=== PATIENT | female | born 1985 | race Caucasian/White ===

== ENCOUNTER 2017-12-09 18:45 | Inpatient (IN) | payer OTHER ==
[~2017-12-09] VITALS: Ht 160 cm; Wt 82.1 kg
[~2017-12-09 18:45] MED LIST: BUPIVACAINE /PF 0.5% 30 ML VIAL EP ONE; LIDOCAINE PF 1% 30ML(POUR BTL) INJ ONE; MINERAL OIL 30 ML UDC PO ONE; ePHEDrine sulfate 50 MG/ML VIAL IVP ONE
[2017-12-09] MEDS ORDERED: OXYTOCIN/0.9 % SODIUM CHLORIDE 1,000 ML IV SCH (19:32)
[2017-12-09] MEDS ORDERED: LR 500 ML IV ONE ×2 (19:32→19:43)
[2017-12-09] MEDS ORDERED: LR 1,000 ML IV ONE (19:32)
[2017-12-09] MEDS: LR 1,000 ML IV SCH (19:32)
[2017-12-09] MEDS ORDERED: TERBUTALINE SULFATE 1 MG/ML VIAL SUBCUT PRN (19:45)
[2017-12-09] MEDS ORDERED: FENT2mCg/mL-ROPIVA0.2%/NS EPID 150 ML EP SCH (19:45)
[2017-12-09] MEDS ORDERED: ROPIVACAINE 0.2% 100 ML ONE (19:53)
[2017-12-09] MEDS ORDERED: fentaNYL CITRATE/PF 100 MCG/2 ML AMP ONE (19:53)
[2017-12-09 19:57] LABS: BASOPHILS % (AUTO) 0.3 % (0.0-2.0); EOSINOPHILS # (AUTO) 0.1 K/uL (0.0-0.4); EOSINOPHILS % (AUTO) 0.4 % (0.0-4.0); HEMATOCRIT 39.3 % (36-48); HEMOGLOBIN 13.5 g/dL (12.0-16.0); LYMPHOCYTES # (AUTO) 1.7 K/uL (1.0-5.5); LYMPHOCYTES % (AUTO) 13.5 % (20.5-51.5); MEAN CORPUSCULAR HEMOGLOBIN 32 pg (27-31); MEAN CORPUSCULAR HGB CONC 34 % (32-36); MEAN CORPUSCULAR VOLUME 93 fL (79.0-98.0); MONOCYTES # (AUTO) 0.9 K/uL (0.0-1.0); MONOCYTES % (AUTO) 6.6 % (1.7-9.3); NEUTROPHILS # (AUTO) 10.2 K/uL (1.8-7.7); NEUTROPHILS % (AUTO) 79.2 % (40.0-70.0); PLATELET COUNT (AUTO) 223 K/uL (130-430); RED BLOOD CELL COUNT(AUTO) 4.24 MIL/uL (4.2-6.2); WHITE BLOOD COUNT (AUTO) 12.9 K/uL (4.8-10.8)
[2017-12-09 22:07] VITALS: BP_SYST 132
[2017-12-10] MEDS ORDERED: fentaNYL CITRATE/PF 100 MCG/2 ML AMP ONE ×2 (00:17→09:25)
[2017-12-10] MEDS ORDERED: ROPIVACAINE 0.2% 100 ML ONE (03:35)
[2017-12-10 06:41] LABS: HEMATOCRIT 27.9 % (36-48); HEMOGLOBIN 9.3 g/dL (12.0-16.0)
[2017-12-10] MEDS ORDERED: MISOPROSTOL 100 MCG TABLET (CYTOTEC) ONE (08:54)
[2017-12-10 09:20] VITALS: BP_SYST 128
[2017-12-10] MEDS ORDERED: LR 1,000 ML IV.SOLN IV ONE (09:25)
[2017-12-10] MEDS ORDERED: PROPOFOL 200MG/ 20ML VIAL (DIPRIVAN) IV ONE (09:25)
[2017-12-10] MEDS ORDERED: MIDAZOLAM HCL 5 MG/ML VIAL (VERSED) IV ONE (09:25)
[2017-12-10] MEDS ORDERED: CEFAZOLIN 2 GM IVPB PREMIX 50 ML IV ONE (09:25)
[2017-12-10] MEDS ORDERED: NS 1000 ML IV.SOLN IV ONE (09:25)
[2017-12-10] MEDS ORDERED: OXYTOCIN/0.9 % SODIUM CHLORIDE 20 UNITS/1,000 ML BAG IV ONE (09:25)
[2017-12-10] MEDS ORDERED: METHYLERGONOVINE MALEATE 0.2 MG/ML AMP ONE (09:25)
[2017-12-10] MEDS: ceFAZolin SODIUM 2 GM in D5W 100 ML IV SCH ×2 (09:50→16:00)
[2017-12-10 12:10] LABS: BASOPHILS % (AUTO) 0.2 % (0.0-2.0); HEMATOCRIT 32.6 % (36-48); HEMOGLOBIN 10.9 g/dL (12.0-16.0); LYMPHOCYTES # (AUTO) 0.9 K/uL (1.0-5.5); LYMPHOCYTES % (AUTO) 6.5 % (20.5-51.5); MEAN CORPUSCULAR HEMOGLOBIN 31 pg (27-31); MEAN CORPUSCULAR HGB CONC 33 % (32-36); MEAN CORPUSCULAR VOLUME 94 fL (79.0-98.0); MONOCYTES # (AUTO) 0.4 K/uL (0.0-1.0); MONOCYTES % (AUTO) 2.7 % (1.7-9.3); NEUTROPHILS # (AUTO) 12.7 K/uL (1.8-7.7); NEUTROPHILS % (AUTO) 90.6 % (40.0-70.0); PLATELET COUNT (AUTO) 172 K/uL (130-430); RED BLOOD CELL COUNT(AUTO) 3.48 MIL/uL (4.2-6.2); RED CELL DISTRIBUTION WIDTH 12.9 % (9.0-15.0)
[2017-12-10 12:34] LABS: PROTHROMBIN TIME 9.9 SECS (9.5-12.5)
[2017-12-10] MEDS ORDERED: OXYCODONE/ACETAMINOPHEN 5-325 TABLET ONE (13:35)
[2017-12-10] MEDS: OXYCODONE/ACETAMINOPHEN 5-325 TABLET PO PRN ×2 (13:35→18:45)
[2017-12-10] MEDS ORDERED: OXYCODONE/ACETAMINOPHEN 5-325 TABLET PO PRN (14:15)
[2017-12-10] MEDS ORDERED: HYDROcodone/ACETAMIN 5-325 MG TAB (NORCO/ VICODIN) PO PRN (14:15)
[2017-12-10] MEDS ORDERED: OXYTOCIN/0.9 % SODIUM CHLORIDE 1,000 ML IV ONE (17:36)
[2017-12-10] MEDS ORDERED: OXYTOCIN/0.9 % SODIUM CHLORIDE 1,000 ML IV SCH (17:36)
[2017-12-10] MEDS ORDERED: MEASLES,MUMPS&RUBELLA VACC/PF 12500 UNIT/0.5 ML VIAL SUBQ PRN (17:45)
[2017-12-10] MEDS ORDERED: DIPH-TET-PERTUS Vaccine 0.5 ML VIAL (ADACEL) I.M. PRN (17:45)
[2017-12-10] MEDS ORDERED: WITCH HAZEL LEAF 1 MED.PAD MED.PAD TP PRN (17:45)
[2017-12-10] MEDS ORDERED: RHO(D) IMMUNE GLOBULIN/MALTOSE 1500 UNITS/1.3 ML (WINHRO) IM PRN (17:45)
[2017-12-10] MEDS ORDERED: LANOLIN 7 GM OINT. TP PRN (17:45)
[2017-12-10] MEDS ORDERED: METHYLERGONOVINE MALEATE 0.2 MG TABLET PO PRN (17:45)
[2017-12-10] MEDS ORDERED: DERMOPLAST SPRAY TP PRN (17:45)
[2017-12-10] MEDS ORDERED: ANUSOL 1 EA SUPP.RECT (PREPARATION H) RC PRN (17:45)
[2017-12-10] MEDS ORDERED: HYDROCORTISONE 0.5%, 28.35 GM TOPICAL CREAM TP PRN (17:45)
[2017-12-10] MEDS ORDERED: IBUPROFEN 600 MG TABLET ONE (17:51)
[2017-12-10] MEDS: IBUPROFEN 600 MG TABLET PO SCH (18:00)
[2017-12-10] MEDS: DOCUSATE SODIUM 100 MG CAPSULE PO PRN (18:00)
[2017-12-10] MEDS ORDERED: DOCUSATE SODIUM 100 MG CAPSULE PO ONE (18:39)
[2017-12-11] MEDS: OXYCODONE/ACETAMINOPHEN 5-325 TABLET PO PRN ×2 (04:37→10:48)
[2017-12-11] MEDS ORDERED: ceFAZolin SODIUM 1 GM VIAL ONE (05:47)
[2017-12-11] MEDS: IBUPROFEN 600 MG TABLET PO SCH ×2 (05:55→18:02)
[2017-12-11 06:10] LABS: BASOPHILS % (AUTO) 0.2 % (0.0-2.0); EOSINOPHILS # (AUTO) 0.1 K/uL (0.0-0.4); EOSINOPHILS % (AUTO) 1.2 % (0.0-4.0); HEMATOCRIT 26.4 % (36-48); HEMOGLOBIN 8.8 g/dL (12.0-16.0); LYMPHOCYTES # (AUTO) 1.5 K/uL (1.0-5.5); LYMPHOCYTES % (AUTO) 13.3 % (20.5-51.5); MEAN CORPUSCULAR HEMOGLOBIN 31 pg (27-31); MEAN CORPUSCULAR HGB CONC 33 % (32-36); MEAN CORPUSCULAR VOLUME 94 fL (79.0-98.0); MONOCYTES # (AUTO) 0.9 K/uL (0.0-1.0); MONOCYTES % (AUTO) 7.7 % (1.7-9.3); NEUTROPHILS % (AUTO) 77.6 % (40.0-70.0); PLATELET COUNT (AUTO) 152 K/uL (130-430); RED BLOOD CELL COUNT(AUTO) 2.82 MIL/uL (4.2-6.2); RED CELL DISTRIBUTION WIDTH 13.3 % (9.0-15.0); WHITE BLOOD COUNT (AUTO) 11.5 K/uL (4.8-10.8)
[2017-12-11] MEDS: ceFAZolin SODIUM 2 GM in D5W 100 ML IV SCH ×4 (09:00→17:00)
[2017-12-11] MEDS: LR 1,000 ML IV SCH (15:37)
[2017-12-11] MEDS: DOCUSATE SODIUM 100 MG CAPSULE PO PRN ×2 (15:38→20:39)
[2017-12-11] MEDS ORDERED: NS IV ONE (20:16)
[2017-12-11] MEDS ORDERED: METRONIDAZOLE IV ONE (20:16)
[2017-12-11] MEDS ORDERED: PIPERACILLIN/TAZOBACTAM 3.375 GM/VIAL (ZOSYN) IV ONE (20:16)
[2017-12-11] MEDS ORDERED: metroNIDAZOLE 500 MG TABLET ONE (20:30)
[2017-12-11] MEDS: metroNIDAZOLE 500 MG TABLET PO SCH (20:39)
[2017-12-11] MEDS: PIPERACILLIN/TAZO 3.375/DEX-IS 50 ML IV SCH (20:40)
[2017-12-12] MEDS ORDERED: TEMAZEPAM 15 MG CAPSULE PO PRN (00:30)
[2017-12-12] MEDS ORDERED: ACETAMINOPHEN 325 MG TABLET PO PRN (00:30)
[2017-12-12] MEDS ORDERED: NS IV ONE (01:44)
[2017-12-12] MEDS ORDERED: METRONIDAZOLE IV ONE (01:44)
[2017-12-12] MEDS: metroNIDAZOLE 500 MG TABLET PO SCH ×3 (01:56→22:05)
[2017-12-12] MEDS ORDERED: metroNIDAZOLE 500 MG TABLET ONE (01:56)
[2017-12-12] MEDS: PIPERACILLIN/TAZO 3.375/DEX-IS 50 ML IV SCH ×3 (01:57→22:00)
[2017-12-12] MEDS ORDERED: PIPERACILLIN/TAZOBACTAM 3.375 GM/VIAL (ZOSYN) IV ONE (01:59)
[2017-12-12] MEDS: LR 1,000 ML IV SCH (02:00)
[2017-12-12] MEDS: IBUPROFEN 600 MG TABLET PO SCH ×3 (06:11→18:13)
[2017-12-12] MEDS: DOCUSATE SODIUM 100 MG CAPSULE PO PRN (21:56)
[2017-12-13] MEDS: metroNIDAZOLE 500 MG TABLET PO SCH ×2 (03:56→10:25)
[2017-12-13] MEDS: PIPERACILLIN/TAZO 3.375/DEX-IS 50 ML IV SCH ×2 (03:58→10:23)
[2017-12-13] MEDS: IBUPROFEN 600 MG TABLET PO SCH ×2 (06:00)
[2017-12-13] MEDS: DOCUSATE SODIUM 100 MG CAPSULE PO PRN (09:09)
== END 2017-12-13 11:58 | disposition home or self-care (01) | DRG 806 ==
LOC: SPU 18:45 → OBSVTOIN 19:30 → SPU 12-10 19:30
PROVIDERS: ADMIT Specialist; ATTEND Specialist
PROC: 10E0XZZ Delivery of Products of Conception, External Approach (ICD-10-PCS; principal; 2017-12-09)
PROC: 3E0R3BZ Introduction of Anesthetic Agent into Spinal Canal, Percutaneous Approach (ICD-10-PCS; 2017-12-09)
PROC: 00HU33Z Insertion of Infusion Device into Spinal Canal, Percutaneous Approach (ICD-10-PCS; 2017-12-09)
PROC: 30233N1 Transfusion of Nonautologous Red Blood Cells into Peripheral Vein, Percutaneous Approach (ICD-10-PCS; 2017-12-10)
PROC: 0UQGXZZ Repair Vagina, External Approach (ICD-10-PCS; 2017-12-10)
PROC: 0UQMXZZ Repair Vulva, External Approach (ICD-10-PCS; 2017-12-10)
PROC: 0UJD7ZZ Inspection of Uterus and Cervix, Via Natural or Artificial Opening (ICD-10-PCS; 2017-12-10)
DX: O48.0 Post-term pregnancy (principal); O71.4 Obstetric high vaginal laceration alone; Z37.0 Single live birth; O72.1 Other immediate postpartum hemorrhage; O77.0 Labor and delivery complicated by meconium in amniotic fluid; O71.82 Other specified trauma to perineum and vulva; Z3A.41 41 weeks gestation of pregnancy
CPT/HCPCS: 36415; 81002-TC; 85018-TC; 85025; 85384-TC; 85610-TC; 85730-TC; 86592; 86886; 86900; 86901; 86920; 87040-TC; 90656; C1726; G0378; J0690; J2001; J2210; J2250; J2543; J2590; J2704; J2795; J3010; J3490; J7030; J7060; J7120; P9021

== ENCOUNTER 2020-04-02 18:05 | Outpatient (CLI) | payer OTHER, SELFPAY | END 2020-04-02 20:08 | disposition home or self-care (01) | LOC: SLB 18:05 | PROVIDERS: ATTEND Specialist | DX: Z20.822 Contact with and (suspected) exposure to COVID-19 (principal) | CPT/HCPCS: C9803; U0003 ==

== ENCOUNTER 2020-04-09 05:15 | Inpatient (IN) | payer OTHER, SELFPAY ==
[~2020-04-09] VITALS: Ht 157.5 cm; Wt 85.3 kg
[2020-04-09] MEDS ORDERED: OXYTOCIN/0.9 % SODIUM CHLORIDE 1,000 ML IV SCH (05:30)
[2020-04-09] MEDS ORDERED: TERBUTALINE SULFATE 1 MG/ML VIAL SUBCUT ONE (05:30)
[2020-04-09] MEDS ORDERED: LR 1,000 ML IV ONE (05:30)
[2020-04-09] MEDS ORDERED: NALBUPHINE HCL 10 MG/ML AMP IVP PRN (05:30)
[2020-04-09] MEDS: LR 1,000 ML IV SCH ×2 (06:20→21:35)
[2020-04-09 06:57] LABS: BASOPHILS % (AUTO) 0.5 % (0.0-2.0); EOSINOPHILS # (AUTO) 0.1 K/uL (0.0-0.4); EOSINOPHILS % (AUTO) 0.7 % (0.0-4.0); HEMATOCRIT 36.9 % (36-48); HEMOGLOBIN 12.7 g/dL (12.0-16.0); LYMPHOCYTES # (AUTO) 1.8 K/uL (1.0-5.5); LYMPHOCYTES % (AUTO) 22.3 % (20.5-51.5); MEAN CORPUSCULAR HEMOGLOBIN 32 pg (27-31); MEAN CORPUSCULAR HGB CONC 34 % (32-36); MEAN CORPUSCULAR VOLUME 93 fL (79.0-98.0); MONOCYTES # (AUTO) 0.5 K/uL (0.0-1.0); MONOCYTES % (AUTO) 6.4 % (1.7-9.3); NEUTROPHILS # (AUTO) 5.6 K/uL (1.8-7.7); NEUTROPHILS % (AUTO) 70.1 % (40.0-70.0); PLATELET COUNT (AUTO) 185 K/uL (130-430); RED BLOOD CELL COUNT(AUTO) 3.99 MIL/uL (4.2-6.2)
[2020-04-09 07:22] VITALS: BP_SYST 125
[2020-04-09] MEDS ORDERED: fentaNYL CITRATE/PF 100 MCG/2 ML AMP ONE ×2 (09:55→21:11)
[2020-04-09] MEDS ORDERED: ROPIVACAINE HCL/PF 0.2% 200 ML ONE ×2 (09:55→21:11)
[2020-04-09] MEDS ORDERED: FENT2mCg/mL-ROPIVA0.2%/NS EPID 200 ML EP SCH (14:15)
[2020-04-09] MEDS ORDERED: DIPHENHYDRAMINE INJ 50 MG/ML VIAL IVP PRN (14:15)
[2020-04-09] MEDS ORDERED: ONDANSETRON HCL 4 MG/2 ML VIAL IVP PRN (14:15)
[2020-04-09] MEDS ORDERED: NALOXONE HCL 0.4 MG/ML AMP (NARCAN) IVP PRN (14:15)
[2020-04-09] MEDS ORDERED: TEMAZEPAM 15 MG CAPSULE PO PRN (21:00)
[2020-04-09] MEDS: DIPHENHYDRAMINE INJ 50 MG/ML VIAL IVP PRN (21:34)
[2020-04-10] MEDS: DIPHENHYDRAMINE INJ 50 MG/ML VIAL IVP PRN (06:05)
[2020-04-10] MEDS: LR 1,000 ML IV SCH (07:33)
[2020-04-10] MEDS ORDERED: MEASLES,MUMPS&RUBELLA VACC/PF 12500 UNIT/0.5 ML VIAL SUBQ PRN (10:15)
[2020-04-10] MEDS ORDERED: DIPH-TET-PERTUS Vaccine 0.5 ML VIAL (ADACEL) I.M. PRN (10:15)
[2020-04-10] MEDS ORDERED: NALOXONE HCL 0.4 MG/ML AMP (NARCAN) IVP PRN (10:15)
[2020-04-10] MEDS ORDERED: OXYTOCIN/0.9 % SODIUM CHLORIDE 1,000 ML IV ONE (10:15)
[2020-04-10] MEDS ORDERED: ANUSOL 1 EA SUPP.RECT (PREPARATION H) RC PRN (10:15)
[2020-04-10] MEDS ORDERED: HYDROCORTISONE 0.5% CREAM 28.4 GM CREAM.GM. TP PRN (10:15)
[2020-04-10] MEDS ORDERED: RHO(D) IMMUNE GLOBULIN/MALTOSE 1500 UNITS/1.3 ML (WINHRO) IM PRN (10:15)
[2020-04-10] MEDS ORDERED: OXYTOCIN/0.9 % SODIUM CHLORIDE 1,000 ML IV SCH (10:15)
[2020-04-10] MEDS ORDERED: METHYLERGONOVINE MALEATE 0.2 MG TABLET PO PRN (10:15)
[2020-04-10] MEDS ORDERED: SENNOSIDES/DOCUSATE SODIUM 1 TAB TABLET(SENOKOT-S) PO PRN (10:15)
[2020-04-10] MEDS ORDERED: DERMOPLAST SPRAY TP PRN (10:15)
[2020-04-10] MEDS ORDERED: LANOLIN 7 GM OINT. TP PRN (10:15)
[2020-04-10] MEDS ORDERED: WITCH HAZEL LEAF 1 MED.PAD MED.PAD TP PRN (10:15)
[2020-04-10] MEDS ORDERED: OXYCODONE/ACETAMINOPHEN 5-325 TABLET PO PRN (10:15)
[2020-04-10] MEDS ORDERED: HYDROcodone/ACETAMIN 5-325 MG TAB (NORCO/ VICODIN) PO PRN (10:15)
[2020-04-10] MEDS ORDERED: METHYLERGONOVINE MALEATE 0.2 MG/ML AMP ONE (10:20)
[2020-04-10] MEDS ORDERED: METHYLERGONOVINE MALEATE 0.2 MG/ML AMP IM ONE (10:20)
[2020-04-10] MEDS: IBUPROFEN 600 MG TABLET PO SCH ×3 (12:26→23:31)
[2020-04-10] MEDS: DOCUSATE SODIUM 100 MG CAPSULE PO PRN (17:39)
[2020-04-10] MEDS ORDERED: MINERAL OIL 30 ML UDC PO ONE (19:20)
[2020-04-10] MEDS: OXYCODONE/ACETAMINOPHEN 5-325 TABLET PO PRN (20:26)
[2020-04-10] MEDS ORDERED: TEMAZEPAM 15 MG CAPSULE PO PRN (21:00)
[2020-04-11] MEDS: IBUPROFEN 600 MG TABLET PO SCH ×2 (05:28→11:22)
[2020-04-11 07:34] LABS: BASOPHILS % (AUTO) 0.2 % (0.0-2.0); EOSINOPHILS # (AUTO) 0.1 K/uL (0.0-0.4); EOSINOPHILS % (AUTO) 1.7 % (0.0-4.0); HEMOGLOBIN 11.5 g/dL (12.0-16.0); LYMPHOCYTES # (AUTO) 1.3 K/uL (1.0-5.5); MEAN CORPUSCULAR HEMOGLOBIN 31 pg (27-31); MEAN CORPUSCULAR HGB CONC 34 % (32-36); MEAN CORPUSCULAR VOLUME 93 fL (79.0-98.0); MONOCYTES # (AUTO) 0.5 K/uL (0.0-1.0); MONOCYTES % (AUTO) 5.9 % (1.7-9.3); NEUTROPHILS # (AUTO) 6.6 K/uL (1.8-7.7); NEUTROPHILS % (AUTO) 77.2 % (40.0-70.0); PLATELET COUNT (AUTO) 172 K/uL (130-430); RED BLOOD CELL COUNT(AUTO) 3.64 MIL/uL (4.2-6.2); RED CELL DISTRIBUTION WIDTH 14.3 % (9.0-15.0); WHITE BLOOD COUNT (AUTO) 8.5 K/uL (4.8-10.8)
[2020-04-11] MEDS: DOCUSATE SODIUM 100 MG CAPSULE PO PRN (09:57)
[2020-04-11] MEDS: OXYCODONE/ACETAMINOPHEN 5-325 TABLET PO PRN (09:58)
== END 2020-04-11 12:15 | disposition home or self-care (01) | DRG 807 ==
LOC: SPU 05:15
PROVIDERS: ADMIT Specialist; ATTEND Specialist
PROC: 10E0XZZ Delivery of Products of Conception, External Approach (ICD-10-PCS; principal; 2020-04-10)
PROC: 0HQ9XZZ Repair Perineum Skin, External Approach (ICD-10-PCS; 2020-04-10)
PROC: 3E033VJ Introduction of Other Hormone into Peripheral Vein, Percutaneous Approach (ICD-10-PCS; 2020-04-10)
PROC: 3E0R3BZ Introduction of Anesthetic Agent into Spinal Canal, Percutaneous Approach (ICD-10-PCS; 2020-04-10)
PROC: 00HU33Z Insertion of Infusion Device into Spinal Canal, Percutaneous Approach (ICD-10-PCS; 2020-04-10)
DX: O99.284 Endocrine, nutritional and metabolic diseases complicating childbirth (principal); Z37.0 Single live birth; E03.9 Hypothyroidism, unspecified; O70.0 First degree perineal laceration during delivery; Z3A.39 39 weeks gestation of pregnancy
CPT/HCPCS: 36415; 85025; 86592; 86886; 86900; 86901; J1200; J2210; J2405; J2590; J3010